=== PATIENT | female | born 1935 | race Caucasian/White ===

== ENCOUNTER 2019-04-15 18:43 | Emergency (ER) | payer MEDICARE ==
[~2019-04-15] VITALS: Ht 157.5 cm; Wt 57.2 kg
[2019-04-15 19:21] VITALS: BP 123/69
--- NOTE | 2019-04-15 19:22 | NUR ---
ED Nurse Note: Patient BIBA from home due to laceration on her right foot. Per patient she triped over and fit her leg at coffee table. AAO x4, VSS at this time. Patient present weith deep laceration of right leg, complaining of pain 4/10.
[2019-04-15] MEDS ORDERED: Lidocaine 2% 20mg/ml/Epi 0.005mg/ml 20ml vial INJ ONE (20:15)
--- NOTE | 2019-04-15 22:18 | Emergency Room Report ---
History of Present Illness General Chief Complaint: Laceration Source: Patient Present Illness HPI 83-year-old female presents to the emergency department complaining of 5 out of 10 severity open wound to the right lower extremity times several hours. Patient reports that she bumped her alfaro on a coffee table and sustained a flap laceration. Patient denies taking blood thinning medications she denies inability to bear weight on the affected extremity. Patient is not sure when her last tetanus vaccination was. No relieving factors at this time. Allergies: Coded Allergies: No Known Allergies (Unverified , 04/15/19) Patient History Past Medical History: see triage record Past Surgical History: none Pertinent Family History: none Now: No Reviewed Nursing Documentation: PMH: Agreed; PSxH: Agreed Nursing Documentation-PMH Hx Hypertension: Yes Review of Systems All Other Systems: negative except mentioned in HPI Physical Exam Vital Signs Date Time Temp Pulse Resp B/P (MAP) Pulse Ox O2 Delivery O2 Flow Rate FiO2 04/15/19 18:50 98.1 68 18 123/69 (87) 98 Room Air Sp02 EP Interpretation: reviewed, normal General Appearance: no apparent distress, alert, GCS 15, non-toxic Head: normocephalic, atraumatic Eyes: bilateral eye normal inspection, bilateral eye PERRL ENT: hearing grossly normal, normal voice Neck: full range of motion Respiratory: chest non-tender, lungs clear, normal breath sounds, speaking full sentences Cardiovascular #1: regular rate, rhythm Musculoskeletal: back normal, gait/station normal, normal range of motion, non- tender Neurologic: alert, oriented x3, responsive, motor strength/tone normal, sensory intact, speech normal, grossly normal Psychiatric: judgement/insight normal Skin: normal color, no rash, warm/dry, well hydrated, laceration - flap laceration of the right alfaro approx 9 cm in length Procedures Laceration/Wound Repair Laceration/Wound Repair : Consent: Verbal Wound Location: lower extremity Wound's Depth, Shape: flap Wound Length (cm): 9 Wound Explored: clean Irrigated w/ Saline (ccs): 500 Betadine Prep?: Yes Anesthesia: Lidocaine w/ Epi Volume Anesthetic (ccs): 5 Wound Debrided: minimal Wound Repaired With: sutures, Steri-strips - 5 overlying Suture Size/Type: 4:0 Number of Sutures: 18 Sterile Dressing Applied?: Yes Splint Applied?: Yes Type of Splint Applied: short leg posterior Sling Applied?: No Patient Tolerated: Well Complications: None Medical Decision Making PA Attestation Dr. Cooper is my supervising Physician whom patient management has been discussed with. Diagnostic Impression: Primary Impression: Laceration ER Course 83-year-old female presents to the emergency department complaining of 5 out of 10 severity open wound to the right lower extremity times several hours. Patient reports that she bumped her alfaro on a coffee table and sustained a flap laceration. Patient denies taking blood thinning medications she denies inability to bear weight on the affected extremity. Patient is not sure when her last tetanus vaccination was. No relieving factors at this time. Ddx considered but are not limited to laceration, tendon injury, cellulitis, amputation Vital signs: are WNL, pt. is afebrile H&PE are most consistent with: flap laceration of the right alfaro approx 9 cm in length ORDERS: none required at this time, the diagnosis is clinical ED INTERVENTIONS: -Tetanus vaccine was administered as pt. vaccination status was unknown. - The wound was copiously irrigated with normal saline, and explored for foreign body for which no FB was found. - pt. is anesthetized with 1%lidocaine w. epi. - The wound was approximated and closed using 18 interrupted 4.0 Ethilon sutures. and 5 overlying steri-strips - sterile dressing is applied. -right Short leg posterior Splint applied by program technician. Pt. remains neurovascularly intact. Discussed with patient: That we make every effort to approximate the laceration as best as we can so that scarring will be as cosmetically pleasing as possible with our limited cosmetic skill set in the Emergency dept. Regardless of our best efforts there will be scarring after laceration repair. The extent of scarring is unknown at this time. DISCHARGE: At this time pt. is stable for d/c to home. Will provide printed patient care instructions, and any necessary prescriptions. Care plan and follow up instructions have been discussed with the patient prior to discharge. Last Vital Signs Date Time Temp Pulse Resp B/P (MAP) Pulse Ox O2 Delivery O2 Flow Rate FiO2 04/15/19 19:21 98.1 18 123/69 98 Room Air 04/15/19 18:50 68 Status: improved Disposition: HOME, SELF-CARE Condition: Stable Scripts Acetaminophen* (TYLENOL EXTRA STRENGTH*) 500 Mg Tablet 500 MG ORAL Q6H, #20 TAB 0 Refills Prov: Arlene Patel 04/15/19 Cephalexin* (KEFLEX*) 500 Mg Capsule 500 MG ORAL EVERY 12 HOURS for 7 Days, #14 CAP 0 Refills Prov: Arlene Patel 04/15/19 Referrals: NON PHYSICIAN (PCP) Patient Instructions: Laceration Care, Adult Additional Instructions: Take medications as directed. SUTURE REMOVAL IN 14 Days Follow up with a Primary Care Provider in 3-5 days, even if your symptoms have resolved. Return sooner to ED if new symptoms occur, or current symptoms become worse. - Please note that this Emergency Department Report was dictated using [employer] technology software, occasionally this can lead to erroneous entry secondary to interpretation by the dictation equipment. Arlene Patel Apr 15, 2019 22:18
[2019-04-15] MEDS ORDERED: TYLENOL EXTRA500 MG ORAL (22:19)
[2019-04-15] MEDS ORDERED: CEPHALEXIN500 MG ORAL (22:19)
[2019-04-15 22:50] VITALS: BP 123/69
--- NOTE | 2019-04-16 00:53 | NUR ---
ED Nurse Note: Pt cleared by health care Provider for discharge. DC instructions/prescription was given and explained to pt and verbalized understanding of teachings. All medical deviecs such as ID band removed. Pt is AAO x4, ambulatory and left with all personal belongings.
== END 2019-04-15 22:50 | disposition home or self-care (01) ==
LOC: EMR 19:40
DX: S81.811A Laceration without foreign body, right lower leg, initial encounter (principal); W22.8XXA Striking against or struck by other objects, initial encounter; Y92.9 Unspecified place or not applicable; I10 Essential (primary) hypertension
CPT/HCPCS: 99283